=== PATIENT | male | born 1980 | race Caucasian/White ===

== ENCOUNTER 2019-01-27 15:01 | Emergency (ER) | payer SELFPAY ==
[~2019-01-27] VITALS: Ht 170.2 cm; Wt 68.0 kg
[2019-01-27 15:18] VITALS: BP 129/81
[2019-01-27] MEDS ORDERED: NAPROXEN 500 MG TABLET PO STA (15:33)
[2019-01-27] MEDS ORDERED: HYDROcodone/APAP 5/325MG 1 TAB TABLET PO ONE (15:45)
[2019-01-27] MEDS ORDERED: cefTRIAXone IM 1 GM VIAL IM ONE (15:45)
[2019-01-27] MEDS ORDERED: metroNIDAZOLE 500 MG TABLET PO ONE (15:45)
[2019-01-27] MEDS ORDERED: AZITHROMYCIN 250 MG TABLET. PO ONE (15:45)
--- NOTE | 2019-01-27 15:47 | PHYS DOC ---
Adult General Chief Complaint Chief Complaint: FOOT INJURY PAIN HPI HPI Patient is a 38 year old male who presents with left foot infection that began a couple days ago. Patient states he thought something bit him in the area got infected on the left medial ankle. He states he is also had infection in between his toes for weeks. Patient denies any fever. Denies any nausea vomiting. He is also requesting to be treated for STDs. He is in the ED with a female partner who was diagnosed with an STD couple weeks ago, was given treatment but she took some of the medicines and gave some to the patient so she never completed the full treatment. Patient denies any symptoms. (ROWENA SABILLON APRN) Review of Systems Review of Systems Constitutional: Denies fever or chills [] GI: Denies abdominal pain, nausea, vomiting, bloody stools or diarrhea [] : Reports STD concerns. Denies dysuria or hematuria [] Musculoskeletal: Denies back pain or joint pain [] Integument: Reports left foot infection Neurologic: Denies headache, focal weakness or sensory changes [] All other systems were reviewed and found to be within normal limits, except as documented in this note. (ROWENA SABILLON APRN) Current Medications Current Medications Current Medications Medications (Trade) Dose Ordered Sig/Nannette Start Time Stop Time Status Last Admin Dose Admin Acetaminophen/ Hydrocodone Bitart (Lortab 5/325) 2 tab 1X ONCE 01/27/19 15:45 01/27/19 15:48 DC 01/27/19 16:10 2 TAB Azithromycin (Zithromax) 1,000 mg 1X ONCE 01/27/19 15:45 01/27/19 15:48 DC 01/27/19 16:10 1,000 MG Ceftriaxone Sodium (Rocephin Im) 1 gm 1X ONCE 01/27/19 15:45 01/27/19 15:48 DC 01/27/19 16:10 1 GM Diphtheria/ Tetanus/Acell Pertussis (Boostrix) 0.5 ml ONCE ONCE 01/27/19 16:45 01/27/19 16:53 DC 01/27/19 16:56 0.5 ML Metronidazole (Flagyl) 2,000 mg 1X ONCE 01/27/19 15:45 01/27/19 15:48 DC 01/27/19 16:09 2,000 MG Naproxen (Naprosyn) 500 mg 1X STAT 01/27/19 15:33 01/27/19 15:48 DC 01/27/19 16:10 500 MG (ARIN VELEZ DO) Allergies Allergies Allergies Coded Allergies Type Severity Reaction Last Updated Verified No Known Drug Allergies 01/27/19 No (ARIN VELEZ DO) Physical Exam Physical Exam Constitutional: Well developed, well nourished, no acute distress, non-toxic appearance. [] Abdomen: Bowel sounds normal, soft, no tenderness, no masses, no pulsatile masses. [] Skin: Left medial ankle with a superficial indurated area approximately 1 x 1 cm with fluctuance this will be drained as noted in procedures. There is multiple open wounds on the left lateral foot and left lee. There is scattered areas of cellulitis to the left foot, this appears superficial. There is dry scaly very smelly left foot consistent with athlete's foot. There is erythema around some of the regions. This appears to be athlete's foot that has become infected. Full range of motion to bilateral toes. Full range of motion to bilateral feet and a nkles. +2 bilateral pedal pulses. Cap refill less than 2 seconds bilateral toes. Back: No tenderness, no CVA tenderness. [] Extremities: No tenderness, no cyanosis, no clubbing, ROM intact, no edema. [] Neurologic: Alert and oriented X 3, normal motor function, normal sensory function, no focal deficits noted. [] Psychologic: Affect normal, judgement normal, mood normal. [] (ROWENA SABILLON APRN) Current Patient Data Vital Signs Vital Signs Date Time Temp Pulse Resp B/P (MAP) Pulse Ox O2 Delivery O2 Flow Rate FiO2 01/27/19 15:18 98.2 99 16 129/81 (97) 99 Room Air 98.2 (ARIN VELEZ DO) EKG EKG [] (ROWENA SABILLON APRN) Radiology/Procedures Radiology/Procedures Indication: abscess left medial ankle Procedure: The patient was positioned appropriately. Local anesthesia was not applicable. An incision was then made over the apex of the lesion with an 11 blade and small amount of yellow bloody purulent material was expressed. The drainage cavity was irrigated and covered with sterile gauze. The patients tetanus status updated as needed. The patient tolerated the procedure well. Complications: none.[] (ROWENA SABILLON APRN) Course & Med Decision Making Course & Med Decision Making Pertinent Labs and Imaging studies reviewed. (See chart for details) This is a 38-year-old male patient presenting to the ED today with a superficial abscess on the left medial ankle that was drained by me as noted in procedures. Patient also has scattered areas of cellulitis on his left foot. He also has infected athlete's foot. He was given tetanus in the ED. Patient is also concerned about STDs. Was given standard STD treatment in the ED. Discharge with nystatin powder, Bactrim, cephalexin. STD education and wound care instructions provided. Follow-up with his own PCP or the health department in 1-2 weeks. (ROWENA SABILLON APRN) Dragon Disclaimer Dragon Disclaimer This electronic medical record was generated, in whole or in part, using a voice recognition dictation system. (ROWENA SABILLON APRN) Departure Departure Impression: Primary Impression: Cellulitis and abscess of left leg Additional Impressions: Athlete's foot on left Concern about STD in male without diagnosis Disposition: 01 HOME, SELF-CARE Condition: STABLE Patient Instructions: Abscess, Care After, Athlete's Foot-SportsMed, Cellulitis, [id number], Sexually Transmitted Disease Additional Instructions: You were evaluated in the emergency room and treated for STDs. Please do not have any intercourse for 2 weeks. Please use protection at all times. Contact your primary care doctor or the health department and follow-up as needed. We also wrote you medications for the foot infection, ensure you complete the medication. Please try and clean your feet and keep them dry. If possible don't wear your issues shoes when you are at home, try to air your feet as much as possible. You can wear open toe shoes too Scripts Cephalexin (CEPHALEXIN) 500 Mg Tablet 1 TAB PO QID, #40 TAB Prov: ROWENA SABILLON APRN 01/27/19 Sulfamethoxazole/Trimethoprim (BACTRIM 400-80 MG TABLET) 1 Each Tablet 1 TAB PO BID, #20 TAB Prov: ROWENA SABILLON APRN 01/27/19 Nystatin (NYSTATIN) 15 Gm Powder 1 CIERRA TP BID, #1 BOTTLE 1 Refill Prov: ROWENA SABILLON APRN 01/27/19 Attending Signature Attending Signature I have reviewed the PA/KEG WASHER's note and plan of care. I was available for consultation as needed during the patient's visit in the emergency department. I agree with the clinical impression, plan, and disposition. (ARIN VELEZ DO) Problem Qualifiers ROWENA SABILLON SARKIS January 27, 2019 15:47 ARIN VELEZ DO January 31, 2019 05:03
[2019-01-27] MEDS ORDERED: NYST15PO9 TP (15:55)
[2019-01-27] MEDS ORDERED: CEPH500T PO (15:55)
[2019-01-27] MEDS ORDERED: SULF1TAB23 PO (15:55)
[2019-01-27] MEDS ORDERED: DIPHTH,PERTUSS(ACELL),TET TOX 0.5 ML DISP.SYRIN. VAX IM ONE (16:45)
== END 2019-01-27 17:01 | disposition home or self-care (01) ==
LOC: ER 15:01
DX: L02.416 Cutaneous abscess of left lower limb (principal); L03.116 Cellulitis of left lower limb; B35.3 Tinea pedis; Z20.2 Contact with and (suspected) exposure to infections with a predominantly sexual mode of transmission
CPT/HCPCS: 10060; 90471; 90715; 96372; 99284; J0696; Q0144

== ENCOUNTER 2019-03-17 09:26 | Emergency (ER) | payer SELFPAY ==
[~2019-03-17] VITALS: Ht 170.2 cm; Wt 70.3 kg
[~2019-03-17 09:26] MED LIST: CEPH500T PO; NYST15PO9 TP; SULF1TAB23 PO
[2019-03-17 10:00] VITALS: BP 118/75
[2019-03-17] MEDS ORDERED: KETOROLAC 30 MG/ML VIAL. IM ONE (10:00)
[2019-03-17] MEDS ORDERED: CYCL10TA2 PO (10:01)
[2019-03-17] MEDS ORDERED: IBUP-1007 PO (10:01)
--- NOTE | 2019-03-17 10:01 | PHYS DOC ---
Past Medical History Past Medical History: No Pertinent History Past Surgical History: No Surgical History Alcohol Use: None Drug Use: None Adult General Chief Complaint Chief Complaint: LOWER BACK PAIN OR INJURY HPI HPI Patient is a 38 year old male who presents with lower back pain since Wednesday. 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 The patient's been trying Tylenol for this pain at home however he says that is not working. The patient states the back pain is severe enough that is difficult to walk. Rates his pain as 8 out of 10 and sharp. States he's had this Pain before several times over the past several years. Review of Systems Review of Systems Complete Review of systems were performed and found to be within normal limits, except lower back pain. Allergies Allergies Allergies Coded Allergies Type Severity Reaction Last Updated Verified No Known Drug Allergies 01/27/19 No Physical Exam Physical Exam Constitutional: Well developed, well nourished, no acute distress, non-toxic appearance. [] HENT: Normocephalic, atraumatic, bilateral external ears normal, oropharynx moist, no oral exudates, nose normal. [] Eyes: PERRLA, EOMI, conjunctiva normal, no discharge. [] Neck: Normal range of motion, no tenderness, supple, no stridor. [] Cardiovascular:Heart rate regular rhythm, no murmur [] Lungs & Thorax: Bilateral breath sounds clear to auscultation [] Abdomen: Bowel sounds normal, soft, no tenderness, no masses, no pulsatile masses. [] Skin: Warm, dry, no erythema, no rash. [] Back: Tenderness to bilateral sides of lumbar back on palpation, no CVA tenderness. [] Extremities: No tenderness, no cyanosis, no clubbing, ROM intact, no edema. [] Neurologic: Alert and oriented X 3, normal motor function, normal sensory function, no focal deficits noted. [] Psychologic: Affect normal, judgement normal, mood normal. [] EKG EKG [] Radiology/Procedures Radiology/Procedures [] Course & Med Decision Making Course & Med Decision Making Pertinent Labs and Imaging studies reviewed. (See chart for details) Appears to have back pain from musculoskeletal origin. Will give Toradol in ER and send home with muscle relaxers (Patient drove here). Dragon Disclaimer Dragon Disclaimer This electronic medical record was generated, in whole or in part, using a voice recognition dictation system. Departure Departure Impression: Primary Impression: Lower back pain Disposition: HOME, SELF-CARE Condition: STABLE Referrals: NO PCP (PCP) Patient Instructions: Back Injury Prevention, Back Pain, Adult Additional Instructions: Thank you for visiting [facility]. We appreciate you trusting us with your care. If any additional problems come up don't hesitate to return to visit us. Please follow up with your primary care provider so they can plan additional care if needed and know about the problem that you had. If symptoms worsen come back to the Emergency Department. Any concerning symptoms that start such as chest pain, shortness of air, weakness or numbness on one side of the body, running high fevers or any other concerning symptoms return to the ER. Please fill your medications at any pharmacy and follow the prescription instructions. Please do not drive or operate machinery on Cyclobenzaprine. Scripts Cyclobenzaprine Hcl (CYCLOBENZAPRINE HCL) 10 Mg Tablet 1 TAB PO TID PRN for MUSCLE SPASMS, #30 TAB Prov: ARIN BLOUNT APRN 03/17/19 Ibuprofen (IBUPROFEN) 600 Mg Tablet 600 MG PO PRN Q6HRS PRN for INFLAMMATION for 7 Days, #20 TAB Prov: ARIN BLOUNT APRN 03/17/19 Problem Qualifiers Primary Impression: Lower back pain Chronicity: acute Back pain laterality: bilateral Sciatica presence: without sciatica Qualified Codes: M54.5 - Low back pain ARIN BLOUNT APRN Mar 17, 2019 10:01
== END 2019-03-17 10:15 | disposition home or self-care (01) ==
LOC: ER 09:26
DX: M54.5 Low back pain (principal)
CPT/HCPCS: 96372; 99283; J1885